=== PATIENT | female | born 1990 | race Caucasian/White ===

== ENCOUNTER 2017-08-01 00:15 | Inpatient (IN) | payer OTHER ==
[2017-08-01] MEDS ORDERED: Nalbuphine 20 MG/ML 1 ML Syringe IVPUSH PRN (00:59)
[2017-08-01] MEDS ORDERED: Sodium Chloride 0.9% 10 ML Syringe FLUSH PRN (00:59)
[2017-08-01] MEDS ORDERED: Lactated Ringers 1,000 ML IV SCH (01:00)
[2017-08-01] MEDS ORDERED: Oxytocin/Lactated Ringers 10 UNIT/1,000 ML BAG IV SCH (01:00)
--- NOTE | 2017-08-01 01:24 | PCM.LDHP ---
L&D History of Present Illness - General Date of Service: 08/01/17 Admit Problem/Dx: Patient Status Order with Admit Dx/Problem 08/01/17 00:59 Patient Status [ADT] Routine Admission Diagnosis/Problem Admission Diagnosis/Problem 08/01/17 01:24 Silvia is a 1 para 0 white female who is presently at 40 4/7 weeks. She was admitted to labor and delivery in active labor with advanced cervical dilation to 8 cm. She has a bulging bag of shelley. She is myles every 2-3 minutes. She is feeling pelvic pressure. Her ADRIAN is 07/27/2017 as determined by a an early ultrasound done at 11 weeks and 4 days. Her last menstrual period was approximately. She is not using any control at time of conception. She started in labor within the last 20 hours. history: 1 para 0 with an ADRIAN 07/27/2017. course was relatively unremarkable. She is a centering patient. She plans to breast-feed. She declined genetic evaluation. [place] depression screening score on 03/08/2017 was 2/30. She is okay with epidural but would like to do a natural delivery if possible. She is group B strep negative.She plans to breast-feed. She has had some stress incontinence and vaginal discharge and . First visit was on 01/09/2017 at 11-4/7 weeks gestational age. She is seen on a very regular basis and was a participant in her centering program. Her weight gain was from 141 pounds to 437 pound weight gain. Her vital signs remained stable throughout the course. Fundal height growth was appropriate. T dap was given on 05/02/2017. Laboratory testing : Blood is A+ with negative amateur screen. First hemoglobin is 15.0 g/dL. Her platelets are 274,000 at that time. She is rubella immune. RPR is nonreactive. Culture of the urine at that time was negative. Her hepatitis B surface antigen and HIV assays were both negative. Gonorrhea. Assays were both negative. Second trimester testing showed a hemoglobin of 12.7 g/dL. Her platelets were 315,000. One-hour GTT was normal at 108 mg/dL. Group B strep screen was negative Allergies: none Medications: 1. vitamins daily Past medical history: Patient has had some breast cysts.. Past surgical history patient had a cyst removed from her upper lip. Family history: Other is alive and well with hypertension. Father is alive and well. She has 2 sisters who are alive but hav depression and possibly bipolar disorder. Maternal grandmother is alive and well. She is on its for hyperthyroidism. Maternal grandfather is alive with an PA history at age 82. Both paternal grandparents . Paternal grandmother with ovarian and breast cancer. Grandfather on paternal side cause of unknown. No anesthesia, bleeding or blood clotting problems noted in the family. Mother has had a history of 2 miscarriages. Social history: patient is , lives in [place]. She works in [employer] at [employer]. is Antoni. She does not use any significant muscle L call, drugs or tobacco. Review of systems: Contractions present. Baby is active. Skin: Negative Respiratory: Negative for infectious disease or shortness of breath Cardiovascular: No chest pain or exercise intolerance Breasts: Changes associated with . Patient plans to breast-feed. GI: Negative : Increased fundal height consistent with term Musculoskeletal: Occasional edema in lower extremities but otherwise negative Neurological: Negative Physical exam: On last evaluation in clinic on 07/25/2017. Patient's blood pressure was 122/66, weight was 178.6 and heart rate was 133. On initial email evaluation her weight was 141, height is 5 feet 6 end body mass index was 22.9 In general patient is well-developed, well-nourished, pleasant female in moderate distress secondary to labor. She is alert and oriented 3. Skin is warm dry without lesions. HEENT neck and back within normal limits Lungs are clear with good breath sounds in all lung barnett. Cardiovascular exam shows regular and rhythm without murmurs. Breast exam is deferred at this time having been done at first visit found to be normal Abdomen is protuberant with last fundal height in clinic at 39-1/2 cm. In vertex presentation Cervix as described above. Last evaluation clinic cervix is 2 cm, 90% effaced, - 2 station, very soft, mid position. Extremities and neurological exam grossly within normal limits. - Related Data Allergies/Adverse Reactions: Allergies Allergy/AdvReac Type Severity Reaction Status Date / Time No Known Allergies Allergy Verified 08/01/17 00:59 H&P Review of Systems - Review of Systems: Review Of Systems: See Below L&D Exam - Exam Exam: See Below - Vital Signs Vital Signs: Last Vital Signs Temp 36.9 C 08/01/17 00:59 Pulse 86 08/01/17 00:59 Resp 16 08/01/17 00:59 BP 146/86 H 08/01/17 00:59 Pulse Ox 99 08/01/17 00:59 Weight: 82.1 kg - Patient Data Lab Results Last 24 hrs: Laboratory Results - last 24 hr 08/01/17 Range/Units 00:50 WBC 14.71 H (3.98-10.04) K/mm3 RBC 4.73 (3.98-5.22) M/mm3 Hgb 14.7 (11.2-15.7) gm/L Hct 42.4 (34.1-44.9) % MCV 89.6 (79.4-94.8) fl MCH 31.1 (25.6-32.2) pg MCHC 34.7 (32.2-35.5) g/dl RDW Std Deviation 43.3 (36.4-46.3) fL Plt Count 257 (182-369) K/mm3 MPV 10.1 (9.4-12.3) fl Neut % (Auto) 81.7 H (34.0-71.1) % Lymph % (Auto) 11.4 L (19.3-51.7) % [place] % (Auto) 6.2 (4.7-12.5) % Eos % (Auto) 0.3 L (0.7-5.8) Baso % (Auto) 0.1 (0.1-1.2) % Neut # (Auto) 12.01 H (1.56-6.13) K/mm3 Lymph # (Auto) 1.67 (1.18-3.74) K/mm3 [place] # (Auto) 0.91 H (0.24-0.36) K/mm3 Eos # (Auto) 0.05 (0.04-0.36) K/mm3 Baso # (Auto) 0.02 (0.01-0.08) K/mm3 Result Diagrams: 08/01/17 00:50 Problem List Initiated/Reviewed/Updated: Yes Orders Last 24hrs: Active Orders 24 hr Category Date Time Status Patient Status [ADT] Routine ADT 08/01/17 00:59 Active Activity as Tolerated [RC] PFP Care 08/01/17 00:59 Active Communication Order [RC] ASDIRECTED Care 08/01/17 00:59 Active Heart Tones [RC] ASDIRECTED Care 08/01/17 01:00 Active Notify Provider [RC] PFP Care 08/01/17 00:59 Active Notify Provider [RC] PRN Care 08/01/17 00:59 Active Peripheral IV Care [RC] . DIRECTED Care 08/01/17 01:00 Active Vital Signs [RC] PER UNIT ROUTINE Care 08/01/17 00:59 Active Lactated Ringers [Ringers, Lactated] 1,000 ml Med 08/01/17 01:00 Active IV ASDIRECTED Nalbuphine [Nubain] Med 08/01/17 00:59 Active 10 mg IVPUSH Q2H PRN Oxytocin/Lactated Ringers [Pitocin in LR 10 Units/1,000 Med 08/01/17 01:00 Active ML] 10 unit in 1,000 ml IV .CONTINUOUS Sodium Chloride 0.9% [Saline Flush] Med 08/01/17 00:59 Active 10 ml FLUSH ASDIRECTED PRN Electronic Heart Tones Ext w TOCO [WOMSER] Oth 08/01/17 00:59 Ordered Routine Electronic Heart Tones Internal [WOMSER] Per Unit Oth 08/01/17 00:59 Ordered Routine Peripheral IV Insertion Adult [OM.PC] Routine Oth 08/01/17 00:59 Ordered Resuscitation Status Routine Resus Stat 08/01/17 00:59 Ordered Medication Orders Lactated Ringer's (Ringers, Lactated) 1,000 mls @ 100 mls/hr IV ASDIRECTED BOB Oxytocin/Lactated Ringer's (Pitocin In Lr 10 Units/1,000 Ml) 10 unit in 1,000 mls @ 500 mls/hr IV .CONTINUOUS BOB Nalbuphine HCl (Nubain) 10 mg IVPUSH Q2H PRN PRN Reason: Pain (moderate 4-6) Sodium Chloride (Saline Flush) 10 ml FLUSH ASDIRECTED PRN PRN Reason: Keep Vein Open Assessment/Plan Comment:: 1. 40-4/7 week intrauterine , active labor, advanced cervical dilation 2. Group B strep screen negative 3.
[2017-08-01] MEDS ORDERED: Lidocaine 1% 50 ML MDV ONE (01:45)
--- NOTE | 2017-08-01 02:09 | PCM.SN ---
- Free Text/Narrative Note: Delivery note: Silvia is a 26-year-old now 1 para 1001 white female who is admitted in active labor with advanced cervical dilation on the a.m. of 2017. She had an ADRIAN of 07/27/2017 by early ultrasound. She progressed quickly to complete cervical dilation, pushed once and had spontaneous rupture of membranes resulting in clear amniotic fluid. She then went on to deliver a viable, tobias, 3480 g (7 lbs. 11 oz.) male with Apgars of 8 and 9, length of 20.0 inches in a left occiput anterior position at 0138 hrs. on 2017. The umbilical cord was allowed to pulsate until it stopped and then was clamped 2 by myself and cut by the baby's father. Her blood was obtained. Patient's estimated blood loss was 100 mL. She had a first-degree perineal laceration and a very superficial abrasion on the left medial labia minora area. The laceration was closed with a [id number] suture of 3-0 Monocryl. Placenta delivered at 0142 hrs. It delivered in a Sweeney presentation,. Intact and complete and was discarded per patient desire. There were 3 vessels umbilical cord. Patient plans to breast-feed. Condition: Good
[2017-08-01] MEDS ORDERED: Lanolin 100% Cream 7 GM Tube TOP PRN (06:00)
[2017-08-01] MEDS ORDERED: Witch Hazel Medicated Pads 100/Jar TOP PRN (06:00)
[2017-08-01] MEDS ORDERED: Benzocaine/Menthol 20%-0.5% Spray 56 GM Canister TOP PRN (06:00)
[2017-08-01] MEDS ORDERED: Acetaminophen 325 MG Tab PO PRN (06:00)
[2017-08-01] MEDS: Ibuprofen 600 MG Tab PO PRN ×3 (07:00→20:38)
--- NOTE | 2017-08-01 07:39 | PCM.SN ---
- Free Text/Narrative Note: note: Patient is doing well in the period. Minimal lochia, voiding well, ambulated without problems. Nursing without concerns. Patient is afebrile, vital signs are stable Abdomen is flat, soft, uterus is below the umbilicus and is firm and nontender. Legs are nontender. Assessment: recovery going well. Plan: Routine care. Patient be discharged home within the next 24- 48 hours.
[2017-08-01] MEDS: Prenatal Multivitamin with Calcium/Folic Acid/Iron Tab PO SCH (14:07)
[2017-08-01] MEDS: Docusate Sodium 100 MG Cap PO PRN (20:38)
[2017-08-02] MEDS: Ibuprofen 600 MG Tab PO PRN ×3 (03:41→18:13)
[2017-08-02] MEDS: Prenatal Multivitamin with Calcium/Folic Acid/Iron Tab PO SCH (09:25)
[2017-08-02] MEDS: Docusate Sodium 100 MG Cap PO PRN (09:33)
--- NOTE | 2017-08-02 14:30 | PCM.DCSUM1 ---
Discharge Summary - Hospital Course Free Text/Narrative:: Silvia is a 26-year-old now 1 para 1001 white female who is admitted in active labor with advanced cervical dilation on the a.m. of 08/01/2017. She had an ADRIAN of 07/27/2017 by early ultrasound. She progressed quickly to complete cervical dilation, pushed once and had spontaneous rupture of membranes resulting in clear amniotic fluid. She then went on to deliver a viable, tobias, 3480 g (7 lbs. 11 oz.) male infant with Apgars of 8 and 9, length of 20.0 inches in a left occiput anterior position at 0138 hrs. on 08/01/2017. The umbilical cord was allowed to pulsate until it stopped and then was clamped 2 by myself and cut by the baby's father. Her blood was obtained. Patient's estimated blood loss was 100 mL. She had a first-degree perineal laceration and a very superficial abrasion on the left medial labia minora area. The laceration was closed with a [id number] suture of 3-0 Monocryl. Placenta delivered at 0142 hrs. It delivered in a Sweeney presentation,. Intact and complete and was discarded per patient desire. There were 3 vessels umbilical cord. Patient plans to breast-feed. patient is done very well. She is nursing without problems, ambulating well, has minimal lochia and is voiding without concerns. She is ready for discharge. Follow-up CBC shows a hemoglobin of 13.2 and platelets 195, 000. - Discharge Data Discharge Date: 08/02/17 Discharge Disposition: Home, Self-Care 01 Condition: Good - Patient Instructions Diet: Regular Diet as Tolerated (Nursing diet with increase calories and calcium is recommended) Activity: As Tolerated ([place] or tampons until bleeding resolves) Driving: Do Not Drive (2 days) Notify Provider of: Fever, Increased Pain, Swelling and Redness, Nausea and/or Vomiting - Discharge Plan Home Medications: Home Meds Acetaminophen [Tylenol] 650 mg PO Q4H PRN tablet 08/02/17 [Rx] Ibuprofen [Motrin] 600 mg PO Q4H PRN tablet 08/02/17 [Rx] Vit with Ca/FA/Iron [ Plus Iron] 1 each PO DAILY tablet [Rx] Referrals: Bert Montoya MD [Primary Care Provider] - (Return to clinicDr. Montoya2 weeks.) - Discharge Summary/Plan Comment DC Time >30 min.: No Discharge Summary/Plan Comment: Discharge instructions: 1. Discharge home 2. Diet, activity and follow-up discussed with patient. Recommend nursing diet with increased calories and calcium. 3. Precautions given concern increased pain, bleeding, temperature, signs/ symptoms of DVT/PE. 4. Medications per home medication was printed, discussed with and given to the patient. 5. Return to clinic-Dr. Montoya-[facility] in 2 weeks. Diagnosis: Term -delivered Condition: Good - Patient Data Vitals - Most Recent: Last Vital Signs Temp 36.6 C 08/02/17 13:16 Pulse 72 08/02/17 13:16 Resp 16 08/02/17 09:24 BP 131/77 08/02/17 13:16 Pulse Ox 97 08/02/17 13:16 Weight - Most Recent: 82.1 kg I&O - Last 24 hours: Intake & Output 08/01/17 08/02/17 08/02/17 22:59 06:59 14:59 Intake Total 180 Balance 180 Lab Results - Last 24 hrs: Laboratory Results - last 24 hr 08/02/17 Range/Units 06:55 WBC 13.74 H (3.98-10.04) K/mm3 RBC 4.25 (3.98-5.22) M/mm3 Hgb 13.2 (11.2-15.7) gm/L Hct 39.3 (34.1-44.9) % MCV 92.5 (79.4-94.8) fl MCH 31.1 (25.6-32.2) pg MCHC 33.6 (32.2-35.5) g/dl RDW Std Deviation 45.1 (36.4-46.3) fL Plt Count 195 (182-369) K/mm3 MPV 10.1 (9.4-12.3) fl Med Orders - Current: Current Medications Acetaminophen (Tylenol) 650 mg PO Q4H PRN PRN Reason: mild pain or fever Benzocaine/Menthol (Dermoplast Pain Relief [place]) 0 gm TOP ASDIRECTED PRN PRN Reason: Perineal Comfort Measure Last Admin: 08/01/17 06:10 Dose: 1 can Docusate Sodium (Colace) 100 mg PO BID PRN PRN Reason: Constipation Last Admin: 08/02/17 09:33 Dose: 100 mg Emollient Ointment (Lansinoh Hpa) 0 gm TOP ASDIRECTED PRN PRN Reason: Sore Nipples Ibuprofen (Motrin) 600 mg PO Q4H PRN PRN Reason: Mild pain or fever Last Admin: 08/02/17 10:48 Dose: 600 mg Prenat Multivit/[place]/Iron/Folic Ac ( Plus Iron) 1 each PO DAILY BOB Last Admin: 08/02/17 09:25 Dose: 1 each Witch Maddie (Tucks) 1 pad TOP ASDIRECTED PRN PRN Reason: Hemorrhoid pain Last Admin: 08/01/17 06:11 Dose: 1 can Discontinued Medications Lactated Ringer's (Ringers, Lactated) 1,000 mls @ 100 mls/hr IV ASDIRECTED BOB Oxytocin/Lactated Ringer's (Pitocin In Lr 10 Units/1,000 Ml) 10 unit in 1,000 mls @ 500 mls/hr IV .CONTINUOUS BOB Last Admin: 08/01/17 01:40 Dose: 500 mls/hr Lidocaine HCl (Xylocaine 1%) Confirm Administered Dose 50 ml .ROUTE .STK-MED ONE Stop: 08/01/17 01:46 Last Admin: 08/01/17 06:13 Dose: Not Given Nalbuphine HCl (Nubain) 10 mg IVPUSH Q2H PRN PRN Reason: Pain (moderate 4-6) Sodium Chloride (Saline Flush) 10 ml FLUSH ASDIRECTED PRN PRN Reason: Keep Vein Open
== END 2017-08-02 18:55 | disposition home or self-care (01) | DRG 775 ==
LOC: JD.OBCHECK 00:15 → JD.OB 00:18 → JD.OBCHECK 00:59 → OBSVTOIN 01:38 → JD.OB 01:39
PROVIDERS: ADMIT Obstetrics & Gynecology; ATTEND Obstetrics & Gynecology
PROC: 6A550ZT Pheresis of Cord Blood Stem Cells, Single (ICD-10-PCS; principal; 2017-08-01)
PROC: 10E0XZZ Delivery of Products of Conception, External Approach (ICD-10-PCS; principal; 2017-08-01)
PROC: 0HQ9XZZ Repair Perineum Skin, External Approach (ICD-10-PCS; principal; 2017-08-01)
DX: O48.0 Post-term pregnancy (principal); Z3A.40 40 weeks gestation of pregnancy; O70.0 First degree perineal laceration during delivery; Z37.0 Single live birth
CPT/HCPCS: 36415; 59300; 59409; 85025; 85027; A9270-GY; J2590

== ENCOUNTER 2020-08-15 06:48 | Inpatient (IN) | payer BC ==
[~2020-08-15 06:48] MED LIST: Bupivacaine 0.25% 10 ML SDV ONE; Lidocaine 1% 10 ML MDV ONE
--- NOTE | 2020-08-15 07:40 | PCM.LDHP ---
L&D History of Present Illness - General Date of Service: 08/15/20 Admit Problem/Dx: Admission Diagnosis/Problem Admission Diagnosis/Problem 08/15/20 07:32 Silvia is a 30-year-old 2 para 1-0-0-1 white female who admitted on the a.m. of 08/15/2020 at 40-3/7 weeks gestational age with an ADRIAN of 08/12/2020 in active labor with progressive cervical dilation. Source of Information: Patient History Limitations: Reports: No Limitations - History of Present Illness Introduction:: Silvia is a 30-year-old 2 para 1-0-0-1 white female who admitted on the a.m. of 08/15/2020 at 40-3/7 weeks gestational age with an ADRIAN of 08/12/2020 in active labor with progressive cervical dilation. Patient was able to get some rest up till approximately 0400 hrs. today and then began actively myles. She is not leaking any fluid, has no bloody show and reports good activity. 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 Patient had menarche at approximately age 14. Cycles every 30 days. No control at the time of conception. Patient's is dated by an early at 6-6/7 weeks gestational age given an ADRIAN of 08/12/2020. That is supported by at least 2 other ultrasounds done later in the . Patient's past obstetric history includes the following: Male infant born 08/01/2017 at 40-5/7 weeks gestational age after 7 hours of labor7 pounds 11 ouncesNSVDno anesthesia. Child's name is Gaston Muijca. course: Patient was initially seen for this at 6-6/7 weeks gestational age. She was seen on a regular basis. Weight gain was from a pregravid weight of 144 pounds up to 190 pounds for a 46.6 pound increase. Her vital signs remained stable throughout the course and her fundal height growth was appropriate. Patient has a history of previous severe pelvic floor's pain/discomfort after her last delivery which required physical therapy for resolution. She is group B strep negative. She plans on breast-feeding. She declines genetic testing. She plans to do an epidural in labor and delivery. She is rubella immune. She had her Tdap on 07/27/2020. Flu shot was on 020. Laboratory testing shows blood to be a positive with a negative antibody screen. First laboratory testing showed hemoglobin of 14.7 g/dL. Platelets were 312,000. She is rubella immune. Urine culture showed group B strep but not group B strep. Hepatitis B surface antigen and HIV assays were both negative as were her chlamydia and gonorrhea tests. Second trimester labs showed hemoglobin 12.9 g/dL and platelets at 281,000. Her 1 hour glucose was 97. RPR done on 05/18/2020 was nonreactive. Group B strep screen is negative. Allergies: None Medications: vitamins 1 p.o. daily Past medical history: 1. 2018 2. Pelvic floor pain secondary to last vaginal delivery. Resolved with physical therapy. Past surgical history: 1. Cyst removed from upper lip. Family history: Mother is alive and well with hypertension. Father is alive and well. Patient has 2 sisters that are alive. Have depression with possible bipolar disorder. Maternal grandmother is alive and well thyroid dysfunction-on meds. Maternal grandmother alive with NH at age 82. Both paternal grandparents have . Paternal grandmother from ovarian and breast cancer. No anesthesia, bleeding, blood clotting problems in the family. Mother has had 2 miscarriages. Social history: Patient is , is Antoni. She is a college graduate. She lives in [place] with her family. She does not use any significant also alcohol, drugs or tobacco. Review of systems: In general patient has no complaints other than contractions as above. Baby has been active. Skin: Negative Lungs: No infectious symptoms or shortness of breath Cardiovascular: No chest pain or exercise intolerance Breasts: No lumps, changes in size, pain, dimpling, discharge or axillary or montemayor praclavicular concerns. Changes associated with . GI: Negative : Body habitus changes consistent with . Musculoskeletal: Negative Neurological: Negative In general the patient is well-developed, well-nourished, pleasant female of stated age in no acute distress. On last evaluation clinic patient's blood pressure was 108/72. Weight was 190.6 with pregravid weight of 144 pounds. Height is 5 feet 6 inches. Prepregnancy body mass index is 22.1 Skin is warm dry without lesions. HEENT, neck and back within normal limits. Lungs are clear with good breath sounds in all lung barnett. Cardiovascular exam shows regular and rhythm without murmurs. Breast exam is deferred having been done at first visit and found to be normal it is not repeated at this time. Patient does plan to breast-feed. Abdomen is gravid with last fundal height at 37.5 cm with baby in vertex presentation by Hari maneuver. Genital digital exam shows cervix to be 3 cm, 90% effaced, bulging bag shelley. Vertex presentation, anterior cervix, soft, -2 station. Extremities and neurological exam are grossly within normal limits. 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: - Past Surgical History HEENT Surgical History: Reports: Oral Surgery Social & Family History - Family History Family Medical History: No Pertinent Family History - Caffeine Use Caffeine Use: Reports: None H&P Review of Systems - Review of Systems: Review Of Systems: See Below L&D Exam - Exam Exam: See Below - Problem List (1) 40 weeks gestation of SNOMED Code(s): 21505226 ICD Code: Z3A.40 - 40 WEEKS GESTATION OF Status: Acute Current Visit: Yes Problem List Initiated/Reviewed/Updated: Yes Assessment/Plan Comment:: 1Nelson Vega is a 30-year-old 2 para 1-0-0-1 white female who admitted on the a.m. of 08/15/2020 at 40-3/7 weeks gestational age with an ADRIAN of 08/12/2020 in active labor with progressive cervical dilation. 2. Group B strep negative 3. History of pelvic floor slight pain/discomfort after last delivery requiring physical therapy for resolution 4. Patient plans to breast-feed 5. Patient is rubella immune 6. Patient is considering epidural in labor 7. Patient declined genetic testing. Plan: 1. Anticipate normal spontaneous vaginal delivery 2. Monitor for pelvic pain/discomfort after delivery 3. Support breast-feeding decision 4. Epidural per patient desire 5. Admission labs consist of Covid19, CBC, RPR per protocol
[2020-08-15] MEDS ORDERED: Sodium Chloride 0.9% 10 ML Syringe FLUSH PRN (08:26)
[2020-08-15] MEDS ORDERED: Nalbuphine 10 MG/1 ML Vial IVPUSH PRN (08:26)
[2020-08-15] MEDS ORDERED: Bupivacaine/fentaNYL/NS 100 ML Bag EPIDUR PRN (08:27)
[2020-08-15] MEDS ORDERED: ePHEDrine 50 MG/ML SDV IVPUSH PRN (08:27)
[2020-08-15] MEDS ORDERED: fentaNYL 100 MCG/2 ML SDV EPIDUR PRN (08:27)
[2020-08-15] MEDS ORDERED: diphenhydrAMINE 50 MG/ML SDV IVPUSH PRN (08:27)
[2020-08-15] MEDS ORDERED: Oxytocin/Lactated Ringers 10 UNIT/1,000 ML BAG IV SCH (08:30)
--- NOTE | 2020-08-15 08:35 | PCM.PREANE ---
Preanesthetic Assessment - Procedure Proposed Procedure: Labor Epidural - Anesthesia/Transfusion/Family Hx Anesthesia History: Prior Anesthesia Without Reaction Family History of Anesthesia Reaction: No Transfusion History: No Prior Transfusion(s) - Review of Systems General: No Symptoms Pulmonary: No Symptoms Cardiovascular: No Symptoms Gastrointestinal: Abdominal Pain (uterine) Neurological: Pre-Existing Deficit (History of career advisor: Diver compression/curvature of spine. ) Other: Reports: None - Physical Assessment Vital Signs: 125/86 80 15 98% 98.3F Height: 1.55 m Weight: 86.636 kg ASA Class: 2 Mental Status: Alert & Oriented x3 Airway Class: Mallampati = 2 Dentition: Reports: Normal Dentition Thyro-Mental Finger Breadths: 3 Mouth Opening Finger Breadths: 3 ROM/Head Extension: Full Lungs: Clear to Auscultation, Normal Respiratory Effort Cardiovascular: Regular Rate, Regular Rhythm - Allergies Allergies/Adverse Reactions: Allergies Allergy/AdvReac Type Severity Reaction Status Date / Time eye drop Allergy Rash Uncoded 08/15/20 08:25 - Acknowledgements Anesthesia Type Planned: Epidural Pt an Appropriate Candidate for the Planned Anesthesia: Yes Alternatives and Risks of Anesthesia Discussed w Pt/Guardian: Yes Pt/Guardian Understands and Agrees with Anesthesia Plan: Yes PreAnesthesia Questionnaire 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: - Past Surgical History HEENT Surgical History: Reports: Oral Surgery - HOME MEDS Home Medications: Home Meds Acetaminophen [Tylenol] 650 mg PO Q4H PRN tablet 08/02/17 [Rx] Ibuprofen [Motrin] 600 mg PO Q4H PRN tablet 08/02/17 [Rx] Vit with Ca/FA/Iron [ Plus Iron] 1 each PO DAILY tablet 08/02/17 [Rx] - CURRENT (IN HOUSE) MEDS Current Meds: Current Medications Diphenhydramine HCl (Diphenhydramine 50 Mg/Ml Sdv) 25 mg IVPUSH Q6H PRN PRN Reason: pruritis Ephedrine Sulfate (Ephedrine 50 Mg/Ml Sdv) 5 mg IVPUSH ASDIRECTED PRN PRN Reason: Hypotension Fentanyl (Fentanyl 100 Mcg/2 Ml Sdv) 100 mcg EPIDUR Q3H PRN PRN Reason: Pain Fentanyl/Bupivacaine HCl (Bupivacaine/Fentanyl/Ns 100 Ml Bag) 100 ml EPIDUR ASDIRECTED PRN PRN Reason: Pain
--- NOTE | 2020-08-15 08:58 | PCM.SN.2 ---
- Free Text/Narrative Note: Procedure: IV Start Date: 08/15/2020 Time: Start 0755 Stop 08 Called for difficult IV start due to multiple failed attempts by nursing staff. Patient agreeable to IV attempt. IV start kit utilized. Lidocaine 1% for localization of skin, left wrist cleansed with chlorhexidine, 20 gauge IV inserted with a single attempt, good blood return, flushes well, secured with a transparent dressing. Connected to gravity infusion by DEBRA Sousa. Good flow. Silvia tolerated the procedure well.
[2020-08-15] MEDS: Lactated Ringers 1,000 ML IV SCH ×2 (09:51→10:29)
--- NOTE | 2020-08-15 13:25 | PCM.SN.2 ---
- Free Text/Narrative Note: Delivery note: Stage I: Silvia is a 30-year-old 2 para 1-0-0-1 white female who admitted on the a.m. of 08/15/2020 at 40-3/7 weeks gestational age with an ADRIAN of 08/12/2020 in active labor with progressive cervical dilation. Membranes are intact, no bleeding was noted. Baby is active. heart tones reassuring. Patient was myles approximately 2 to 4 minutes. Moderate to strong intensity of contractions. Patient desires natural labor at first. She is undecided about epidural initially. She eventually desired epidural and this was placed with good results. Patient progressed to complete cervical dilation by approximately 1230 hrs. She pushed for approximately 20 minutes. Just before she began pushing AROM was accomplished with resultant mild meconium stained amniotic fluid. heart tones were reassuring therefore no further intervention was undertaken. Stage II: Silvia spontaneously delivered a viable, tobias, male infant with Apgars of 8 and 9, a weight of 3970 g (8 pounds 12 ounces) and a length of 21.5 inches in a left occiput anterior position. The anterior and posterior shoulders were delivered with gentle traction. The baby was completely delivered, nose and mouth were bulb suctioned. The baby was then placed on mom's abdomen and was dried with warm blanket. The umbilical cord was allowed to pulsate x3 minutes and then was clamped x2 and cut by the baby's Father Abel. Cord blood was obtained. The umbilical cord had 3 vessels. Patient had a vaginal laceration and small first-degree perineal laceration. These were repaired in a routine fashion using 3-0 Monocryl suture. Stage III: The placenta delivered in a Sweeney presentation, appeared intact and complete and was discarded per patient desire. It had mild meconium-stained appearance. The epidural catheter was removed without problems. Estimated blood loss was 200 cc. Patient plans to breast-feed. Condition: Good.
[2020-08-15] MEDS ORDERED: Acetaminophen 325 MG Tab PO PRN (14:02)
[2020-08-15] MEDS ORDERED: Benzocaine/Menthol 20%-0.5% Spray 56 GM Canister TOP PRN (14:02)
[2020-08-15] MEDS ORDERED: Witch Hazel Medicated Pads 40/Jar TOP PRN (14:02)
[2020-08-15] MEDS ORDERED: Docusate Sodium 100 MG Cap PO PRN (14:02)
[2020-08-15] MEDS: Ibuprofen 600 MG Tab PO PRN ×2 (16:55→22:44)
[2020-08-16] MEDS: Ibuprofen 600 MG Tab PO PRN ×3 (04:19→18:25)
--- NOTE | 2020-08-16 07:09 | PCM.SN.2 ---
- Free Text/Narrative Note: note: day #1 Patient is doing well in the period. Minimal lochia, voiding well, ambulated without problems. Nursing without concerns. Patient is afebrile, vital signs are stable Abdomen is flat, soft, uterus is below the umbilicus and is firm and nontender. Legs are nontender. Assessment: recovery going well. Plan: Routine care. Patient be discharged home within the next 24-48 hours.
--- NOTE | 2020-08-16 07:17 | PCM48HPAN ---
Post Anesthesia Note - EVALUATION WITHIN 48HRS OF ANESTHETIC Vital Signs in Normal Range: Yes Patient Participated in Evaluation: Yes Respiratory Function Stable: Yes Airway Patent: Yes Cardiovascular Function Stable: Yes Hydration Status Stable: Yes Pain Control Satisfactory: Yes Nausea and Vomiting Control Satisfactory: Yes Mental Status Recovered: Yes Vital Signs: Last Vital Signs Temp 36.7 C 08/16/20 04:18 Pulse 84 08/16/20 04:18 Resp 14 08/16/20 04:18 BP 122/75 08/16/20 04:18 Pulse Ox 97 08/16/20 04:18
[2020-08-16] MEDS ORDERED: Prenatal Multivitamin with Calcium/Folic Acid/Iron Tab PO SCH (09:00)
--- NOTE | 2020-08-16 17:15 | PCM.DCSUM1 ---
Discharge Summary - Hospital Course Free Text/Narrative:: Stage I: Silvia is a 30-year-old 2 para 1-0-0-1 white female who admitted on the a.m. of 08/15/2020 at 40-3/7 weeks gestational age with an ADRIAN of 08/12/2020 in active labor with progressive cervical dilation. Membranes are intact, no bleeding was noted. Baby is active. heart tones reassuring. Patient was myles approximately 2 to 4 minutes. Moderate to strong intensity of contractions. Patient desires natural labor at first. She is undecided about epidural initially. She eventually desired epidural and this was placed with good results. Patient progressed to complete cervical dilation by approximately 1230 hrs. She pushed for approximately 20 minutes. Just before she began pushing AROM was accomplished with resultant mild meconium stained amniotic fluid. heart tones were reassuring therefore no further intervention was undertaken. Stage II: Silvia spontaneously delivered a viable, tobias, male with Apgars of 8 and 9, a weight of 3970 g (8 pounds 12 ounces) and a length of 21.5 inches in a left occiput anterior position. The anterior and posterior shoulders were delivered with gentle traction. The baby was completely delivered, nose and mouth were bulb suctioned. The baby was then placed on mom's abdomen and was dried with warm blanket. The umbilical cord was allowed to pulsate x3 minutes and then was clamped x2 and cut by the baby's Father Abel. Cord blood was obtained. The umbilical cord had 3 vessels. Patient had a vaginal laceration and small first-degree perineal laceration. These were repaired in a routine fashion using 3-0 Monocryl suture. Stage III: The placenta delivered in a Sweeney presentation, appeared intact and complete and was discarded per patient desire. It had mild meconium-stained appearance. The epidural catheter was removed without problems. Estimated blood loss was 200 cc. Patient plans to breast-feed. patient is done well. She is nursing without problems, has minimal lochia, is ambulating well and is voiding without concerns. She is desiring discharge home. Condition: Good. Diagnosis: Stroke: No - Discharge Data Discharge Date: 08/16/20 Discharge Disposition: Home, Self-Care 01 Condition: Good - Referral to Home Health Primary Care Physician: Bert Montoya MD - Discharge Diagnosis/Problem(s) (1) 40 weeks gestation of SNOMED Code(s): 08755178 ICD Code: Z3A.40 - 40 WEEKS GESTATION OF Status: Acute Current Visit: Yes - Patient Instructions Diet: Regular Diet as Tolerated (Nursing diet with increased calories and calcium as recommended) Activity: As Tolerated (No intercourse or tampons until bleeding resolves) Driving: May Drive Today Showering/Bathing: May Shower (May take a bath) Notify Provider of: Fever, Increased Pain, Swelling and Redness, Nausea and/or Vomiting - Discharge Plan Home Medications: Home Meds Vit with Ca/FA/Iron [ Plus Iron] 1 each PO DAILY tablet 08/02/17 [Rx] Acetaminophen [Tylenol] 650 mg PO Q4H PRN tablet 08/16/20 [Rx] Ibuprofen [Motrin] 600 mg PO Q4H PRN tablet 08/16/20 [Rx] Referrals: Bert Montoya MD [Primary Care Provider] - (Return to [facility] weeks.) - Discharge Summary/Plan Comment DC Time >30 min.: No Discharge Summary/Plan Comment: Discharge instructions: 1. Discharge home 2. Diet, activity and follow-up discussed with patient. Recommend nursing diet with increased calories and calcium. 3. Precautions given concern increased pain, bleeding, temperature, signs/symptoms of DVT/PE. 4. Medications per home medication was printed, discussed with and given to the patient. 5. Return to clinic-Dr. Montoya[facility] in 2 weeks. Diagnosis: Term -delivered Condition: Good - Patient Data Vitals - Most Recent: Last Vital Signs Temp 36.3 C 08/16/20 13:56 Pulse 90 08/16/20 13:56 Resp 16 08/16/20 13:56 BP 123/74 08/16/20 13:56 Pulse Ox 98 08/16/20 13:56 Weight - Most Recent: 86.636 kg I&O - Last 24 hours: Intake & Output 08/16/20 08/16/20 08/16/20 06:59 14:59 22:59 Intake Total 120 Balance 120 Med Orders - Current: Current Medications Acetaminophen (Acetaminophen 325 Mg Tab) 650 mg PO Q4H PRN PRN Reason: mild pain or fever Benzocaine/Menthol (Benzocaine/Menthol 20%-0.5% [place] 56 Gm Canister) 0 gm TOP ASDIRECTED PRN PRN Reason: Perineal Comfort Measure Last Admin: 08/15/20 15:10 Dose: 1 can Documented by: Docusate Sodium (Docusate Sodium 100 Mg Cap) 100 mg PO BID PRN PRN Reason: Constipation Last Admin: 08/16/20 08:03 Dose: 100 mg Documented by: Ibuprofen (Ibuprofen 600 Mg Tab) 600 mg PO Q4H PRN PRN Reason: Mild pain or fever Last Admin: 08/16/20 08:03 Dose: 600 mg Documented by: Prenat Multivit/[place]/Iron/Folic Ac ( Multivitamin With Calcium/Folic Acid/Iron Tab) 1 each PO DAILY BOB Last Admin: 08/16/20 08:03 Dose: 1 each Documented by: Shaye Perkins (Shaye Perkins Medicated Pads 40/Jar) 1 pad TOP ASDIRECTED PRN PRN Reason: Perineal Comfort Measure Last Admin: 08/15/20 15:10 Dose: 1 tub Documented by: Discontinued Medications Bupivacaine HCl (Bupivacaine 0.25% 10 Ml Sdv) 10 ml .ROUTE .STK-MED ONE Stop: 08/15/20 00:01 Diphenhydramine HCl (Diphenhydramine 50 Mg/Ml Sdv) 25 mg IVPUSH Q6H PRN PRN Reason: pruritis Ephedrine Sulfate (Ephedrine 50 Mg/Ml Sdv) 5 mg IVPUSH ASDIRECTED PRN PRN Reason: Hypotension Fentanyl (Fentanyl 100 Mcg/2 Ml Sdv) 100 mcg EPIDUR Q3H PRN PRN Reason: Pain Last Admin: 08/15/20 09:53 Dose: 100 mcg Documented by: Fentanyl/Bupivacaine HCl (Bupivacaine/Fentanyl/Ns 100 Ml Bag) 100 ml EPIDUR ASDIRECTED PRN PRN Reason: Pain Last Admin: 08/15/20 09:53 Dose: 100 ml Documented by: Oxytocin/Lactated Ringer's (Pitocin In Lr 10 Units/1,000 Ml) 10 unit in 1,000 mls @ 500 mls/hr IV .CONTINUOUS BOB Last Admin: 08/15/20 13:00 Dose: 500 mls/hr Documented by: Lactated Ringer's (Ringers, Lactated) 1,000 mls @ 100 mls/hr IV ASDIRECTED BOB Last Admin: 08/15/20 10:29 Dose: 100 mls/hr Documented by: Lidocaine HCl (Lidocaine 1% 10 Ml Mdv) 10 ml .ROUTE .[facility] ONE Stop: 08/15/20 00:01 Nalbuphine HCl (Nalbuphine 10 Mg/1 Ml Vial) 10 mg IVPUSH Q2H PRN PRN Reason: Pain Sodium Chloride (Sodium Chloride 0.9% 10 Ml Syringe) 10 ml FLUSH ASDIRECTED PRN PRN Reason: Keep Vein Open
[2020-08-16 17:28] VITALS: BP 126/88; PULSE 71
== END 2020-08-16 18:54 | disposition home or self-care (01) | DRG 560 ==
LOC: JD.OBCHECK 06:48 → JD.OB 06:48 → JD.OBCHECK 07:37 → OBSVTOIN 12:50 → JD.OB 12:51
PROVIDERS: ADMIT Obstetrics & Gynecology; ATTEND Obstetrics & Gynecology
PROC: 10E0XZZ Delivery of Products of Conception, External Approach (ICD-10-PCS; principal; 2020-08-15)
PROC: 10907ZC Drainage of Amniotic Fluid, Therapeutic from Products of Conception, Via Natural or Artificial Opening (ICD-10-PCS; 2020-08-15)
PROC: 3E0R3BZ Introduction of Anesthetic Agent into Spinal Canal, Percutaneous Approach (ICD-10-PCS; 2020-08-15)
PROC: 0HQ9XZZ Repair Perineum Skin, External Approach (ICD-10-PCS; 2020-08-15)
DX: O48.0 Post-term pregnancy (principal); Z3A.40 40 weeks gestation of pregnancy; Z37.0 Single live birth; O77.0 Labor and delivery complicated by meconium in amniotic fluid; O70.0 First degree perineal laceration during delivery; Z20.822 Contact with and (suspected) exposure to COVID-19
CPT/HCPCS: 36410; 36415; 51701; 59025; 59409; 85025; 86592; 86803; A9270-GY; J2590; J3010; J3490; J7120; U0002